=== PATIENT | female | born 1980 | race African-American/Black ===

== ENCOUNTER 2017-08-17 22:33 | Emergency (ER) | payer SELFPAY ==
[~2017-08-17] VITALS: Ht 162.6 cm; Wt 65.8 kg
[2017-08-17] MEDS ORDERED: NKM (22:48)
[2017-08-17 22:55] VITALS: BP 137/95
[2017-08-17] MEDS ORDERED: Norco 5mg/325mg tab ORAL ONE (23:00)
[2017-08-17] MEDS ORDERED: AMOXICILLIN500 MG ORAL (23:01)
[2017-08-17] MEDS ORDERED: HYDROCODON-ACE1 EA15 ORAL (23:01)
--- NOTE | 2017-08-17 23:01 | Emergency Room Report ---
History of Present Illness General Chief Complaint: Headache Source: Patient Present Illness HPI This is a 37-year-old female with no past medical history. She presents with left-sided headache and toothache. Onset for about a week. Worse today. Nausea no vomiting. Worse with eating. Her left eye the patient has slight swelling. No other complaint. No drainage. No focal deficit. No fever. No slurred speech. He has 9/10. Allergies: Coded Allergies: No Known Allergies (Unverified , 08/17/17) Patient History Past Medical History: see triage record, old chart reviewed Past Surgical History: other Pertinent Family History: none Social History: Denies: smoking Last Menstrual Period: Jul Now: No Immunizations: other Reviewed Nursing Documentation: PMH: Agreed, PSxH: Agreed Nursing Documentation-PMH Past Medical History: No Stated History Review of Systems Eye: Denies: eye pain, blurred vision ENT: Denies: ear pain, nose congestion, throat swelling Respiratory: Denies: cough, shortness of breath Cardiovascular: Denies: chest pain, palpitations Gastrointestinal: Denies: abdominal pain, diarrhea, nausea, vomiting Musculoskeletal: Denies: back pain, joint pain Skin: Denies: rash Neurological: Reports: headache, Denies: numbness Endocrine: Denies: increased thirst, increased urine Hematologic/Lymphatic: Denies: easy bruising All Other Systems: negative except mentioned in HPI Physical Exam Vital Signs Date Time Temp Pulse Resp B/P (MAP) Pulse Ox O2 Delivery O2 Flow Rate FiO2 08/17/17 22:41 98.6 86 16 137/95 98 Room Air vitals is normal Sp02 EP Interpretation: reviewed, normal General Appearance: well appearing, no apparent distress, alert Head: normocephalic, atraumatic Eyes: bilateral eye PERRL, bilateral eye EOMI ENT: hearing grossly normal, normal pharynx, other - No abscess noted. Dental carry of the left lower wisdom tooth. Neck: full range of motion, supple, no meningismus Respiratory: chest non-tender, lungs clear, normal breath sounds Cardiovascular #1: regular rate, rhythm, no murmur Gastrointestinal: normal bowel sounds, non tender, no mass, no organomegaly, no bruit, non-distended Musculoskeletal: back normal, gait/station normal, normal range of motion Psychiatric: mood/affect normal Skin: warm/dry Medical Decision Making Diagnostic Impression: Primary Impression: Headache Qualified Codes: R51 - Headache Additional Impression: Dental abscess ER Course Patient with a dental abscess causing her headache. No evidence of meningitis, bleed or stroke. No abscess that can be I&D. We'll discharge home. She said she has a dentist so will told to followup. Last Vital Signs Date Time Temp Pulse Resp B/P (MAP) Pulse Ox O2 Delivery O2 Flow Rate FiO2 08/17/17 22:55 98.6 16 137/95 98 Room Air 08/17/17 22:41 86 Status: improved Disposition: HOME, SELF-CARE Condition: Stable Scripts Hydrocodone/Acetaminophen 5-325* (HYDROCODONE/ACETAMINOPHEN 5-325*) 1 Each Tablet 1 TAB ORAL Q6H Y for For Pain, #15 TAB 0 Refills Prov: YENY MAZARIEGOS M.D. 08/17/17 Amoxicillin* (AMOXIL*) 500 Mg Capsule 500 MG ORAL THREE TIMES A DAY, #21 CAP Prov: YENY MAZARIEGOS M.D. 08/17/17 Referrals: NOT CHOSEN IPA/,REFERRING (PCP) Additional Instructions: Followup with your DrLorenzo in 7 days. See a dentist JUAN. Return if worse. YENY MAZARIEGOS M.D. Aug 17, 2017 23:01
[2017-08-17 23:09] VITALS: BP 137/95
== END 2017-08-17 23:11 | disposition home or self-care (01) ==
LOC: EMR 22:52
DX: K04.7 Periapical abscess without sinus (principal); R51 Headache; K08.89 Other specified disorders of teeth and supporting structures
CPT/HCPCS: 99284